=== PATIENT | female | born 1990 | race Caucasian/White ===

== ENCOUNTER 2023-09-24 09:56 | Emergency (ER) | payer BC ==
[~2023-09-24] VITALS: Ht 172.7 cm; Wt 68.0 kg
[2023-09-24 10:10] VITALS: BP_SYST 120; PULSE 93; RESP 18; TEMP 98.6; O2SAT 98
[2023-09-24] MEDS: KETOROLAC TROMETHAMINE 15 MG VIAL IVP ONE (10:42)
[2023-09-24 10:46] LABS: BASOPHILS % (AUTO) 0.4 % (0.0-2.0); EOSINOPHILS # (AUTO) 0.1 K/uL (0.0-0.4); EOSINOPHILS % (AUTO) 0.8 % (0.0-4.0); HEMATOCRIT 35.3 % (36-48); HEMOGLOBIN 11.9 g/dL (12.0-16.0); LYMPHOCYTES # (AUTO) 1.4 K/uL (1.0-5.5); LYMPHOCYTES % (AUTO) 17.3 % (20.5-51.5); MEAN CORPUSCULAR HEMOGLOBIN 26 pg (27-31); MEAN CORPUSCULAR HGB CONC 34 % (32-36); MEAN CORPUSCULAR VOLUME 77 fL (79.0-98.0); MONOCYTES # (AUTO) 0.5 K/uL (0.0-1.0); MONOCYTES % (AUTO) 5.6 % (1.7-9.3); NEUTROPHILS # (AUTO) 6.3 K/uL (1.8-7.7); NEUTROPHILS % (AUTO) 75.9 % (40.0-70.0); PLATELET COUNT (AUTO) 316 K/uL (130-430); RED BLOOD CELL COUNT(AUTO) 4.57 MIL/uL (4.2-6.2); RED CELL DISTRIBUTION WIDTH 17.8 % (9.0-15.0); WHITE BLOOD COUNT (AUTO) 8.3 K/uL (4.8-10.8)
[2023-09-24 10:52] LABS: BILIRUBIN,URINE NEGATIVE (NEGATIVE); CLARITY/URINE CLEAR (CLEAR); COLOR,URINE YELLOW (YELLOW); GLUCOSE,URINE NEGATIVE (NEGATIVE); KETONES,URINE NEGATIVE (NEGATIVE); LEUKOCYTE ESTERASE ,URINE 1+ (NEGATIVE); NITRITE, URINE NEGATIVE (NEGATIVE); PROTEIN URINE TRACE (NEGATIVE); UROBILINOGEN,URINE 0.2 (0.2-1.0)
[2023-09-24 10:53] LABS: BLOOD, URINE TRACE (NEGATIVE)
[2023-09-24 11:05] LABS: BACTERIA,URINE FEW /HPF (None Seen)
[2023-09-24 11:10] LABS: ALBUMIN 3.9 g/dL (3.4-4.8); BILIRUBIN,DIRECT 0.1 mg/dL (0.0-0.3); CALCIUM 8.9 mg/dL (8.4-11.0); CREATININE 0.63 mg/dL (0.55-1.30); POTASSIUM 3.8 mmol/L (3.5-5.1); TOTAL BILIRUBIN 0.4 mg/dL (0.0-1.0); TOTAL PROTEIN, SERUM 7.9 g/dL (6.4-8.3)
[2023-09-24] MEDS: MORPHINE 4 MG INJ. 4 MG/ML VIAL IVP ONE (11:44)
[2023-09-24] MEDS ORDERED: cefTRIAXone 1 GM VIAL ONE (11:48)
[2023-09-24] MEDS: cefTRIAXone 1 GM in D5W 50 ML IV ONE (11:53)
[2023-09-24] MEDS ORDERED: CEPH-548 PO (13:29)
[2023-09-24] MEDS: DIPHENHYDRAMINE INJ 50 MG/ML VIAL IVP ONE (13:35)
[2023-09-24] MEDS: HYDROmorphone 1 MG/ML INJ. CARTRIDGE IVP ONE (13:35)
[2023-09-24 14:02] VITALS: BP_SYST 128; PULSE 80; RESP 16; TEMP 97.7; O2SAT 97
[2023-09-25] MEDS ORDERED: NITR-85 PO (19:34)
[2023-09-25] MEDS ORDERED: HYDR-3917 PO (19:34)
== END 2023-09-24 14:02 | disposition home or self-care (01) ==
LOC: SED 09:56
DX: N12 Tubulo-interstitial nephritis, not specified as acute or chronic (principal); Z88.8 Allergy status to other drugs, medicaments and biological substances
CPT/HCPCS: 99285; 74176; 96365; 96375; 80076; 80048; 81000; 81001; 83690; 85025; 87086; 36415; 81025; 81015; J0696; J1200; J1885; J1170; J2270

== ENCOUNTER 2023-09-25 16:22 | Emergency (ER) | payer BC ==
[~2023-09-25] VITALS: Ht 172.7 cm; Wt 65.3 kg
[~2023-09-25 16:22] MED LIST: CEPH-548 PO
[2023-09-25 17:05] VITALS: BP_SYST 126; PULSE 82; RESP 20; TEMP 97.4; O2SAT 100
[2023-09-25 18:13] LABS: BASOPHILS % (AUTO) 0.5 % (0.0-2.0); EOSINOPHILS # (AUTO) 0.2 K/uL (0.0-0.4); EOSINOPHILS % (AUTO) 2.3 % (0.0-4.0); HEMATOCRIT 33.2 % (36-48); HEMOGLOBIN 11.1 g/dL (12.0-16.0); LYMPHOCYTES # (AUTO) 2.1 K/uL (1.0-5.5); LYMPHOCYTES % (AUTO) 26.7 % (20.5-51.5); MEAN CORPUSCULAR HEMOGLOBIN 26 pg (27-31); MEAN CORPUSCULAR HGB CONC 34 % (32-36); MEAN CORPUSCULAR VOLUME 77 fL (79.0-98.0); MONOCYTES # (AUTO) 0.6 K/uL (0.0-1.0); MONOCYTES % (AUTO) 7.3 % (1.7-9.3); NEUTROPHILS # (AUTO) 4.9 K/uL (1.8-7.7); NEUTROPHILS % (AUTO) 63.2 % (40.0-70.0); PLATELET COUNT (AUTO) 345 K/uL (130-430); RED BLOOD CELL COUNT(AUTO) 4.33 MIL/uL (4.2-6.2); RED CELL DISTRIBUTION WIDTH 17.6 % (9.0-15.0); WHITE BLOOD COUNT (AUTO) 7.7 K/uL (4.8-10.8)
[2023-09-25] MEDS: ONDANSETRON HCL 4 MG/2 ML VIAL IVP ONE (18:23)
[2023-09-25] MEDS: MORPHINE 4 MG INJ. 4 MG/ML VIAL IVP ONE ×2 (18:27→19:59)
[2023-09-25 18:29] LABS: BILIRUBIN,URINE NEGATIVE (NEGATIVE); BLOOD, URINE 1+ (NEGATIVE); GLUCOSE,URINE NEGATIVE (NEGATIVE); KETONES,URINE NEGATIVE (NEGATIVE); LEUKOCYTE ESTERASE ,URINE 1+ (NEGATIVE); NITRITE, URINE NEGATIVE (NEGATIVE); PH,URINE 6.5 (5.0-8.0); PROTEIN URINE NEGATIVE (NEGATIVE); UROBILINOGEN,URINE 0.2 (0.2-1.0)
[2023-09-25] MEDS: DIPHENHYDRAMINE INJ 50 MG/ML VIAL IVP ONE (18:31)
[2023-09-25 18:37] LABS: CLARITY/URINE SLIGHTLY HAZY (CLEAR); COLOR,URINE STRAW (YELLOW)
[2023-09-25 18:50] LABS: PROTHROMBIN TIME 10.2 SECS (9.5-12.5)
[2023-09-25 18:55] LABS: SERUM HCG (QUALITATIVE) NEGATIVE (NEGATIVE)
[2023-09-25 19:00] LABS: BACTERIA,URINE FEW /HPF (None Seen); MUCUS,URINE None Seen /LPF (None Seen)
[2023-09-25] MEDS ORDERED: HYDR-3917 PO (19:34)
[2023-09-25] MEDS ORDERED: NITR-85 PO (19:34)
[2023-09-25 19:39] LABS: ALBUMIN 3.8 g/dL (3.4-4.8); CALCIUM 7.9 mg/dL (8.4-11.0); CREATININE 0.66 mg/dL (0.55-1.30); POTASSIUM 3.7 mmol/L (3.5-5.1); TOTAL BILIRUBIN 0.2 mg/dL (0.0-1.0); TOTAL PROTEIN, SERUM 7.6 g/dL (6.4-8.3)
[2023-09-25 19:40] LABS: BILIRUBIN,DIRECT 0.1 mg/dL (0.0-0.3)
[2023-09-25] MEDS ORDERED: cefTRIAXone 1 GM VIAL ONE (19:44)
[2023-09-25] MEDS: cefTRIAXone 1 GM in D5W 50 ML IV ONE (19:59)
[2023-09-25 21:00] VITALS: BP_SYST 112; PULSE 75; RESP 17; TEMP 98; O2SAT 97
== END 2023-09-25 21:00 | disposition home or self-care (01) ==
LOC: SED 16:22
DX: N39.0 Urinary tract infection, site not specified (principal); R10.9 Unspecified abdominal pain; Z88.5 Allergy status to narcotic agent; Z98.890 Other specified postprocedural states
CPT/HCPCS: 99284; 96365; 96375; 80076; 80048; 81000; 81001; 82150; 84703; 83690; 85025; 85610; 85730; 87086; 36415; 96376; 81025; 83605; 82397; 81015; J0696; J1200; J2405; J2270